=== PATIENT | male | born 2000 | race Caucasian/White ===

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

== ENCOUNTER 2018-10-18 10:05 | Emergency (ER) | payer OTHER ==
[2018-10-18 10:27] LABS: PLATELET COUNT 314 10^3/uL (150-400)
--- NOTE | 2018-10-18 10:27 | EDPHY ---
H & P Stated Complaint: alcohol intoxication Time Seen by Provider: 10/18/18 10:07 HPI/ROS: CHIEF COMPLAINT: Presumed intoxication HISTORY OF PRESENT ILLNESS: The patient presents the emergency department today with presumed alcohol intoxication. The patient was found on the street by police. He was unable to articulate the events surrounding his presentation to the ED today. The patient states that he is currently not a student [employer] [facility] in lives in [place]. He reportedly was in [place] visiting friends. He does report drinking heavily last night. EMS did notice some blood from his left tympanic membrane. The patient denies any history of fall or trauma. He denies ingestion. He denies any acute complaints. REVIEW OF SYSTEMS: A comprehensive 10 point review of systems is otherwise negative aside from elements mentioned in the history of present illness. Source: Patient Exam Limitations: No limitations - Personal History Current Tetanus/Diphtheria Vaccine: Yes Current Tetanus Diphtheria and Acellular Pertussis (TDAP): Yes - Medical/Surgical History Hx Asthma: No Hx Chronic Respiratory Disease: No Hx Diabetes: No Hx Cardiac Disease: No Hx Renal Disease: No Hx Cirrhosis: No Hx Alcoholism: No Hx HIV/AIDS: No Hx Splenectomy or Spleen Trauma: No Other PMH: adhd,schizophrenia - Social History Smoking Status: Current every day smoker - Physical Exam Exam: General Appearance: Alert, no distress Eyes: Abrasion noted to the left external auditory canal, no hemotympanum ENT, Mouth: Mucous membranes moist Respiratory: There are no retractions, lungs are clear to auscultation Cardiovascular: Regular rate and rhythm Gastrointestinal: Abdomen is soft and nontender, no masses, bowel sounds normal Neurological: A&O, normal motor function, normal sensory exam, normal cranial nerves Skin: Warm and dry, no rashes Musculoskeletal: Neck is supple nontender Extremities: symmetrical, full range of motion Psychiatric: Patient is oriented X 3, there is no agitation Constitutional: Initial Vital Signs Temperature (C) 37.6 C 10/18/18 10:05 Heart Rate 99 10/18/18 10:05 Respiratory Rate 16 10/18/18 10:05 Blood Pressure 125/87 H 10/18/18 10:05 O2 Sat (%) 97 10/18/18 10:05 O2 Delivery Mode Room Air Allergies/Adverse Reactions: No Known Allergies Allergy (Unverified 09/01/17 01:29) Home Medications: Medication Instructions Recorded LaMICtal 10/18/18 Zantherpine 10/18/18 Medical Decision Making ED Course/Re-evaluation: The patient gave me permission to contact his mother. I spoke with her at 10:30am. Patient has a history of bipolar (on lamotrigine and zyprexa) and alcohol abuse. Lives with family but they are out of town. They report the patient's brother should be able to come and pick the patient up. I re-evaluated the patient at 11:00 a.m.. He is comfortable waiting in the emergency department until his brother can pick him up. He denies any suicidal or homicidal ideation. He reports he has been compliant with his regular psychiatric medications. The patient's brother has come to the emergency department and can take him home. The patient does not meet criteria for 72 hr mental health hold. The patient is comfortable being discharged with his brother. The patient's family members are also comfortable with him being discharged to his brother. Differential Diagnosis: Differential diagnosis considered includes alcohol intoxication, bipolar mood disorder, psychosis - Data Points Laboratory Results: Laboratory Results 10/18/18 10:00 10/18/18 10:00 10/18/18 10/18/18 10:00 10:00 WBC 15.12 10^3/uL H 10^3/uL (3.80-9.50) RBC 6.15 10^6/uL 10^6/uL (4.40-6.38) Hgb 17.4 g/dL g/dL (13.7-17.5) Hct 49.9 % % (40.0-51.0) MCV 81.1 fL L fL (81.5-99.8) MCH 28.3 pg pg (27.9-34.1) MCHC 34.9 g/dL g/dL (32.4-36.7) RDW 12.8 % % (11.5-15.2) Plt Count 314 10^3/uL 10^3/uL (150-400) MPV 8.7 fL fL (8.7-11.7) Neut % (Auto) 76.5 % H % (39.3-74.2) Lymph % (Auto) 15.5 % % (15.0-45.0) Daniels % (Auto) 7.4 % % (4.5-13.0) Eos % (Auto) 0.0 % L % (0.6-7.6) Baso % (Auto) 0.3 % % (0.3-1.7) Nucleat RBC Rel Count 0.0 % % (0.0-0.2) Absolute Neuts (auto) 11.57 10^3/uL H 10^3/uL (1.70-6.50) Absolute Lymphs (auto) 2.34 10^3/uL 10^3/uL (1.00-3.00) Absolute Monos (auto) 1.12 10^3/uL H 10^3/uL (0.30-0.80) Absolute Eos (auto) 0.00 10^3/uL L 10^3/uL (0.03-0.40) Absolute Basos (auto) 0.05 10^3/uL 10^3/uL (0.02-0.10) Absolute Nucleated RBC 0.00 10^3/uL 10^3/uL (0-0.01) Immature Gran % 0.3 % % (0.0-1.1) Immature Gran # 0.04 10^3/uL 10^3/uL (0.00-0.10) Sodium 150 mEq/L H mEq/L (135-145) Potassium 4.0 mEq/L mEq/L (3.3-5.0) Chloride 111 mEq/L H mEq/L (97-110) Carbon Dioxide 26 mEq/l mEq/l (22-31) Anion Gap 13 mEq/L mEq/L (6-14) BUN 5 mg/dL L mg/dL (7-23) Creatinine 1.2 mg/dL mg/dL (0.7-1.3) Estimated GFR > 60 Glucose 117 mg/dL H mg/dL (70-100) Calcium 8.9 mg/dL mg/dL (8.5-10.4) Ethyl Alcohol 223 mg/dL H mg/dL (0-10) Departure - Departure Disposition: Home, Routine, Self-Care Clinical Impression: Alcoholic intoxication, Bipolar mood disorder Condition: Good Instructions: Alcohol Intoxication (ED) Additional Instructions: 1. Please follow up with your therapist. 2. We recommend complete avoidance of alcohol. 3. Please return to the ED for any thoughts of harming yourself or others, worsening psychologic symptoms or other concerns.
[2018-10-18 15:01] VITALS: BP 125/87
== END 2018-10-18 15:01 | disposition home or self-care (01) ==
LOC: EDUNIT#
DX: F10.920 Alcohol use, unspecified with intoxication, uncomplicated (principal); F31.9 Bipolar disorder, unspecified; Z79.899 Other long term (current) drug therapy
CPT/HCPCS: G0480